=== PATIENT | male | born 1980 | race Caucasian/White ===

== ENCOUNTER 2020-01-05 22:43 | Emergency (ER) | payer BC, SELFPAY ==
--- NOTE | ~2020-01-05 | XR_ITS ---
EXAMINATION: XR abdomen/kub 1V DATE: 01/06/2020 02:48 INDICATION: Left flank pain. TECHNIQUE: A supine view of the abdomen on 2 radiographs was obtained. COMPARISON: CT abdomen and pelvis 01/06/2020 FINDINGS: There are no dilated loops of bowel. There is a phlebolith in left pelvis. The 2 mm stone a t left ureterovesicular junction is not visible. IMPRESSION: 1. The 2 mm stone at left ureterovesicular junction is not visible. Reviewed, dictated and finalized at location A.
--- NOTE | ~2020-01-05 | CT_ITS ---
EXAMINATION: CT abdomen pelvis wo con DATE: 01/06/2020 02:51 INDICATION: Left flank pain. Hematuria. TECHNIQUE: Computed tomography (CT) of the abdomen and pelvis was performed without intravenous contr ast. Automated exposure control and iterative reconstruction technique were employed. The dose-length product was 1426.80 mGy-cm. COMPARISON: CT abdomen and pelvis 05/11/2019 FINDINGS: The visualized portions of the lung bases demonstrate mild atelectasis on the left. No pleu ral effusion. The heart size is normal. No pericardial effusion. The liver, gallbladder, spleen, panc reas, adrenal glands, and right kidney are normal. There is mild left hydronephrosis and hydroureter. There is a 2 mm stone at left ureterovesicular junction. There are no dilated loops of bowel. The ap pendix is normal. There are no pathologically enlarged lymph nodes. There is no free intraperitoneal fluid. There is mild thoracic spondylosis. IMPRESSION: 1. 2 mm stone at left ureterovesicular junction with mild left hydronephrosis and hydroureter. Reviewed, dictated and finalized at location A. IMPRESSION: 1. 2 mm stone at left ureterovesicular junction with mild left hydronephrosis a nd hydroureter.
[2020-01-05 22:51] VITALS: BP 156/86; PULSE 67; RESP 20; TEMP 36.2; O2SAT 98
[2020-01-05 23:50] LABS: Basophils Percent Auto 0.4 % (0.2-1.2); Eosinophils Absolute Auto 0.2 K/mm3 (0-0.3); Eosinophils Percent Auto 2.4 % (0-4.4); Hematocrit 45.2 % (42.0-52.0); Hemoglobin 15.1 g/dL (14.0-18.0); Immature Granulocyte Absolute 0.03 K/mm3 (0.00-0.031); Immature Granulocyte Percent A 0.3 % (0-0.5); Lymphocytes Absolute Auto 2.89 K/mm3 (0.9-3.2); Lymphocytes Percent Auto 30.5 % (18.3-44.2); Mean Corpuscular HGB Conc 33.4 g/dl (32-36); Mean Corpuscular Hemoglobin 30.2 pg (26-34); Mean Corpuscular Volume 90.4 fl (80-100); Mean Platelet Volume 10.9 fl (7.4-10.4); Monocytes Absolute Auto 0.6 K/mm3 (0.1-0.6); Monocytes Percent Auto 6.2 % (2.6-8.5); Neutrophils Absolute Auto 5.7 K/mm3 (1.3-6.7); Neutrophils Percent Auto 60.2 % (45.5-73.1); Platelet Count Result 217 k/mm3 (150-375); Red Cell Distribution Width 12.3 % (11.5-14.5); White Blood Count 9.5 K/mm3 (4.5-10.0)
[2020-01-05 23:56] LABS: Add Urine Microscopic? YES; Appearance Urine Clear (Clear); Bilirubin Urine Negative (Negative); Blood Urine Negative (Negative); Color Urine Yellow (Yellow); Glucose Urine UA Negative (Negative); Ketones Urine Negative (Negative); Leukocyte Esterase Ur Negative LEU/UL (Negative); Mucus Urine Rare /lpf; Nitrate Urine Negative (Negative); Protein Urine Negative (Negative); Specific Grav Ur 1.025 (1.001-1.035); Urobilinogen Urine Negative mg/dL (<2.0)
[2020-01-06] VITALS: BP 164/74; PULSE 69; RESP 14; TEMP 36.4; O2SAT 100
[2020-01-06] LABS: Blood Urea Nitrogen 18 mg/dL (9-20); Calcium 9.8 mg/dL (8.4-10.2); Carbon Dioxide 27 mmol/L (22-30); Chloride 105 mmol/L (98-107); Estimated CRCL calculation 117 ml/min; Estimated Glomerular Filt Rate > 60; Glucose 109 mg/dL (75-110); Potassium 3.9 mmol/L (3.4-5.0); Sodium 140 mmol/L (137-145)
[2020-01-06 01:57] VITALS: BP 155/85; PULSE 77; RESP 18; O2SAT 94
--- NOTE | 2020-01-06 02:20 | ED.ABDPAIN ---
HPI - Abdominal Pain General Chief Complaint: Abdominal Pain Stated Complaint: left sided flank pain Time Seen by Provider: 01/06/20 02:13 Source: patient Mode of arrival: ambulatory Limitations: no limitations History of Present Illness HPI narrative: This patient is a 39 yo male who presents with c/o left flank pain since Sunday. PAtient states he has intermittent left flank pain that became more severe tonight. He states his pain radiates around to his umbilicus. He is not taken anything for pain but his pain has improved in ED . He rates pain 3/10 currently. HE denies fever or chills, but he states he was sweating when his pain was severe earlier. He has similar pain last year when he last had a kidney stone. Related Data Allergies Allergy/AdvReac Type Severity Reaction Status Date / Time No Known Allergies Allergy Mild Verified 01/05/20 22:55 Review of Systems Review of Systems: All systems reviewed & are unremarkable except as noted in HPI and below Constitutional: Constitutional: Denies chills and Denies fever(s) Gastrointestinal: Gastrointestinal: Reports abdominal pain Genitourinary: Genitourinary: Denies hematuria, Denies oliguria and Denies dysuria Musculoskeletal: Musculoskeletal: Reports back pain PMFSH Past Medical History Medical History (Updated 01/06/20 @ 04:58 by Anjali Sorensen MD) Kidney stones Social History Social History Gender identity (if verbalized by the patient): Male Exam Narrative: Exam Narrative: GENERAL: Well-appearing, well-nourished, and in no acute distress. HEAD: Normocephalic, atraumatic EYES: PERRLA and EOMI, conjunctiva clear without discharge THROAT:Mucous membranes moist, Oropharynx normal without erythema, exudate, peritonsillar swelling or fluctuance NECK: Supple, without lymphadenopathy or mass RESPIRATORY: No respiratory distress, Airway patent, Respirations non-labored, Clear to auscultation without rales, rhonchi or wheeze HEART: Regular rate and rhythm. No murmur heard. Normal peripheral pulses. ABDOMEN: Soft, nontender, nondistended, normal active bowel sounds. No masses. No rebound or guarding, No organomegaly. EXTREMITIES: No edema, normal strength with full range of motion. SKIN: Warm, dry, normal color without rash NEURO: Alert and oriented x3. CN 2-12 grossly intact. No focal deficits. PSYCH: Normal mood and affect. Course Reevaluation(s) Reevaluation #1: Patient states he feels much better. He was given toradol and flomax. He states he has prescription of flomax already prescribed to him. Date: 01/06/20 Time: 04:56 Vital Signs Vital signs: Vital Signs Temperature 97.1 F L 01/05/20 22:51 Pulse Rate 67 01/05/20 22:51 Respiratory Rate 20 01/05/20 22:51 Blood Pressure 156/86 H 01/05/20 22:51 Pulse Oximetry 98 01/05/20 22:51 Temperature 97.7 F 01/06/20 05:19 Pulse Rate 81 01/06/20 05:19 Respiratory Rate 16 01/06/20 05:19 Blood Pressure 160/81 H 01/06/20 05:19 Pulse Oximetry 99 01/06/20 05:19 MDM - Abdominal Pain Lab Data Attestation: I reviewed the patient's lab results. Result diagrams: 01/05/20 23:42 01/05/20 23:42 Labs: Lab Results 01/05/20 01/05/20 01/05/20 Range/Units 23:42 23:42 23:42 WBC 9.5 (4.5-10.0) K/mm3 RBC 5.00 (4.6-6.20) M/mm3 Hgb 15.1 (14.0-18.0) g/dL Hct 45.2 (42.0-52.0) % MCV 90.4 (80-100) fl MCH 30.2 (26-34) pg MCHC 33.4 (32-36) g/dl RDW 12.3 (11.5-14.5) % Plt Count 217 (150-375) k/mm3 MPV 10.9 H (7.4-10.4) fl Immature Gran % (Auto) 0.3 (0-0.5) % Neut % (Auto) 60.2 (45.5-73.1) % Lymph % (Auto) 30.5 (18.3-44.2) % [place] % (Auto) 6.2 (2.6-8.5) % Eos % (Auto) 2.4 (0-4.4) % Baso % (Auto) 0.4 (0.2-1.2) % Lymph # (Auto) 2.89 (0.9-3.2) K/mm3 [place] # (Auto) 0.6 (0.1-0.6) K/mm3 Eos # (Auto) 0.2 (0-0.3) K/mm3 Baso # (Auto) 0.0 (0.0-0.1) K/mm3
[2020-01-06 03:31] VITALS: BP 151/87; PULSE 72; RESP 18; O2SAT 97
[2020-01-06] MEDS: KETOROLAC 30 MG/ML VIAL (*BKC) IV PUSH (03:51)
[2020-01-06] MEDS: SODIUM CHLORIDE 0.9% IV 1,000 ML 999 ML IV CONT (03:56)
[2020-01-06] MEDS: TAMSULOSIN HCL 0.4 MG CAPSULE PO (03:56)
[2020-01-06 04:21] VITALS: TEMP 36.4
[2020-01-06 05:19] VITALS: BP 160/81; PULSE 81; RESP 16; TEMP 36.5; O2SAT 99
== END 2020-01-06 05:33 | disposition home or self-care (01) ==
PROVIDERS: Emergency Provider General Practice; PCP Internal Medicine
DX: N13.2 Hydronephrosis with renal and ureteral calculous obstruction (principal); Z87.442 Personal history of urinary calculi; K76.0 Fatty (change of) liver, not elsewhere classified
CPT/HCPCS: 36415; 74018; 74176; 80048; 81001; 85025; 96361; 96374; 99284; A9270; J1885; J7030

== ENCOUNTER 2021-09-21 10:30 | Outpatient (CLI) | payer BC, SELFPAY ==
--- NOTE | ~2021-09-21 | US_ITS ---
EXAMINATION: US carotid duplex BI DATE: 09/21/2021 11:45 INDICATION: Left carotid bruit TECHNIQUE: Grayscale, color Doppler, and pulsed Doppler images of the cervical carotid arteries were obtained. The degree of vessel stenosis is placed in one of the following categories: normal, <50%, 5 0-69%, >=70% but less than near-occlusion, near-occlusion, or total occlusion. Note that percent sten osis relative to normal distal artery lumen diameter is indirectly measured from velocity measurement s as described by Gary, et al. Radiology 2003; 229:340-346. Notes: Normal: Peak systolic velocity <125 centimeters/sec and no plaque <50%. Peak systolic velocity <125 ( EDV <40; ICA/CCA PSV ratio <2.0; used these factors only a tandem lesions or low cardiac output or co ntralateral disease) 50-69 %: PSV 125-230 (EDV 40-100; ratio 2-4) >= 70% but less than near occlusion: PSV greater than 230 (EDV > 100; ratio> 4.0) Near Occlusion: PSV that is variable; markedly narrowed lumen Occlusion: Absent flow on color/spectral Doppler and no lumen on kellogg scale. COMPARISON: None. FINDINGS: RIGHT: The right common carotid artery (CCA) peak systolic velocity (PSV) is 136 cm/s. The right internal ca rotid artery (ICA) PSV is 83 cm/s. The right ICA end-diastolic velocity (EDV) is 31 cm/s. The right I CA/CCA PSV ratio is 0.6. The external carotid artery (ECA) PSV is 141 cm/s. There is antegrade flow i n the right vertebral artery. LEFT: The left CCA PSV is 168 cm/s. The left ICA PSV is 80 cm/s. The left ICA EDV is 17 cm/s. The left ICA/ CCA PSV ratio is 0.47. The ECA PSV is 89 cm/s. There is antegrade flow in the left vertebral artery. IMPRESSION: 1. Less than 50% stenosis in the right internal carotid artery by sonographic criteria. 2. Less than 50% stenosis in the left internal carotid artery by sonographic criteria. Reviewed, dictated and finalized at location B. R [employer] IMPRESSION: 1. Less than 50% stenosis in the right internal carotid artery by sonographic girish meraz. 2. Less than 50% stenosis in the left internal carotid artery by sonographic emily russell.
== END 2021-09-21 10:31 | disposition home or self-care (01) ==
PROVIDERS: PCP Internal Medicine; Visit Provider Internal Medicine
DX: R09.89 Other specified symptoms and signs involving the circulatory and respiratory systems (principal); I65.23 Occlusion and stenosis of bilateral carotid arteries
CPT/HCPCS: 93880

== ENCOUNTER 2024-04-07 11:09 | Emergency (ER) | payer BC, SELFPAY ==
[2024-04-07 11:20] VITALS: BP 127/80; PULSE 66; RESP 14; TEMP 36.8; O2SAT 100
--- NOTE | 2024-04-07 12:46 | ED.SKABFB ---
HPI - Skin/Abscess/Foreign Bdy General Chief complaint: Skin/Abscess/Foreign Body Stated complaint: abscess Time Seen by Provider: 04/07/24 12:02 History of Present Illness HPI narrative: This is a 43-year-old male with past medical history significant for prediabetes who presents to the ED with a abscess in his perineal region. Patient states that started about 1 week prior. Has been increasing in size and is now painful. Denies any systemic features such as fever, chills, rigors, shortness of breath, headache, vision changes. Has not been taking anything at home. Denies any drainage or injuries. No scratches, bug bites or trauma associated with this. Related Data Home Medications Medication Instructions Recorded Confirmed vilazodone 40 mg tablet 40 mg PO DAILY 08/16/23 brexpiprazole 0.25 mg tablet 0.25 mg PO DAILY 01/03/24 (Rexulti) bupropion HCl 200 mg tablet,12 hr 200 mg PO DAILY 01/03/24 sustained-release Allergies Allergy/AdvReac Type Severity Reaction Status Date / Time No Known Allergies Allergy Mild Verified 04/07/24 14:01 Review of Systems Review of Systems: As reviewed above in the HPI PMFSH Past Medical History Medical History Anxiety Depression Diabetes Fatigue High cholesterol Kidney stones Low testosterone Prediabetes Screening for prostate cancer Sleep apnea Wears glasses Weight gain Surgical History Surgical History H/O bariatric surgery Family History Family History Father Brain cancer Grandparent Malignant neoplasm of prostate Social History Social History Smoking status: Never smoker Alcohol intake: current Alcohol use details: Occasionally Substance use: never Do You Feel Safe in your Home?: Yes Lack of Transportation: No Lack of Food: Never True Current Housing: I Have Housing Concerned About Future Housing: No Difficulty Paying Gas/Electric Bills: No Difficulty Paying for Meds: No Currently Unemployed: No Education: Don't Know Difficulty w/ Childcare or Family Care: No Living arrangements: with family Occupation/Education: occupation Additional occupation/education comments: self employed Gender identity (if verbalized by the patient): Male Spiritual care concerns: No Agree to blood products: Yes Exam Narrative: GENERAL: [Well-appearing, well-nourished, and in no acute distress.] HEAD: [Normocephalic, atraumatic.] EYES: [PERRLA and EOMI.] ENT: Nares clear, no rhinorrhea or epistaxis. Mucous membranes moist. NECK: Supple. CHEST: [Clear to auscultation. No respiratory distress.] HEART: [Regular rate and rhythm]. No murmur heard. [Normal peripheral pulses.] ABDOMEN: [Soft, nondistended], [nontender], [No rigidity or guarding] EXTREMITIES: Normal range of motion. [No edema.] SKIN: The intragluteal cleft on the right side has a very large 5 x 5 area of induration, warmth and fluctuance consistent with perineal abscess. No active drainage, tenderness to the touch. NEURO: [No focal deficits]. Alert and oriented [x3.] PSYCH: [Normal mood and affect.] Course Vital Signs Vital signs: Vital Signs Temperature 36.8 C 04/07/24 11:20 Pulse Rate 66 04/07/24 11:20 Respiratory Rate 14 04/07/24 11:20 Blood Pressure 127/80 04/07/24 11:20 Pulse Oximetry 100 04/07/24 11:20 Temperature 36.8 C 04/07/24 11:20 Pulse Rate 66 04/07/24 11:20 Respiratory Rate 14 04/07/24 11:20 Blood Pressure 127/80 04/07/24 11:20 Pulse Oximetry 100 04/07/24 11:20 Procedures Abscess I/D renata-rectal: Date of Incision: 04/07/24 Time of Incision: 14:07 Side (if applicable): right Sedation/analgesia: other (Gause 10 mg, Ativan
[2024-04-07] MEDS: HYDROcodone/acetaminophen (*CRX) 10-325 MG TABLET 1 TAB PO (12:47)
[2024-04-07] MEDS: LORazepam (*CRX) 1 MG TABLET PO (12:48)
[2024-04-07] MEDS: SULFAMETHOXAZOLE/TRIMETHOPRIM 800/160 MG DS TABLET 1 TAB PO (14:23)
== END 2024-04-07 14:28 | disposition home or self-care (01) ==
LOC: ANHED 13:37
PROVIDERS: Emergency Provider Student in an Organized Health Care Education/Training Program; PCP Family Medicine
DX: L02.215 Cutaneous abscess of perineum (principal); E11.9 Type 2 diabetes mellitus without complications
CPT/HCPCS: 46040; 99283; A9270

== ENCOUNTER 2025-05-12 00:40 | Day surgery (SDC) | payer BC, SELFPAY ==
--- OUTSIDE RECORDS SUMMARY | 2025-04-03 04:00 | XMS_ITS ---
Author Organization [facility] [employer] [facility] Address [address] [address] Care Team Providers Care Log Loader Name Role Phone Camelia Nazario Primary Care Provider Unav ailable Madai Floyd Unavailable [phone] Terri Grier Unavailable [phone] REASON FOR VISIT 1 week follow up Social History Sex Assigned At : Social History Observation Description Sex Assigned At Male Encounters Encounter Location Date Provider Diagnosis [facility] [employer] [place] [address] [address] 04/03/2025 Terri Grier Plan Of Treatment Next Appt Details Provider Name:Terri Grier, 05/15/2025 10:00:00 AM, [facility] [facility], [address], [address], Provider Name:Terri Grier, 06/05/2025 09:00:00 AM, [facility] [address], [address], Provider Name:Terri Grier, 06/12/2025 10:00:00 AM, [address] [place] [address], [address], Progress Notes * DARYA TILLEYDOB:1980 (44 yo M)Acc No.[id number]:04/03/2025 Patient: DARYA CARRENO Provider: Gabriel GRIER LCSW :1980 A ge:44 Y S ex:Male Date:04/03/2025 Address:[address] [place], [place] [id number] Pcp:Camelia DARNELL Data: * Chief Complaints: * 1 week follow up * Electronic signature of Terri Grier LCSW on 05/12/2025 at 12:43 AM CDT Sign off status: Pending Signatures: No Ad Hoc Signature Added * Provider: Gabriel GRIER LCSW Date: 0 04/03/2025 Generated for Rocío golden/Anish/Rupa on: 0 05/12/2025 12:43 AM CDT
--- OUTSIDE RECORDS SUMMARY | 2025-04-24 05:00 | XMS_ITS ---
Author Organization [facility] [employer] [facility] Address [address] [address] Care Team Providers Care Skoog Machine Operator Name Role Phone Camelia Nazario Primary Care Provider Unav ailMadai Faria Unavailable [phone] Terri Grier Unavailable [phone] REASON FOR VISIT Therapy Visit Social History Sex Assigned At : Social History Observation Description Sex Assigned At Male Encounters Encounter Location Date Provider Diagnosis [facility] [employer] [place] [id number] [address] 04/24/2025 Terri Grier Plan Of Treatment Next Appt Details Provider Name:Terri Grier, 05/15/2025 10:00:00 AM, [address] [place] [address], [address], Provider Name:Terri Grier, 06/05/2025 09:00:00 AM, [address], [address], Provider Name:Terri Grier, 06/12/2025 10:00:00 AM, [address], [address], Progress Notes * DARYA TILLEYDOB:1980 (44 yo M)Acc No.[id number]:04/24/2025 Patient: DARYA CARRENO Provider: Gabriel GRIER LCSW :1980 A ge:44 Y S ex:Male Date:04/24/2025 Address:[address] [place], [place] [id number] Pcp:Camelia DARNELL Data: * Chief Complaints: * T herapy Visit Billing Information: * Procedure Codes: * Electronic signature of Terri Grier LCSW on 05/12/2025 at 12:43 AM CDT Sign off status: Pending Signatures: No Ad Hoc Signature Added * Provider: Gabriel GRIER LCSW Date: 0 04/24/2025 Generated for Rocío golden/Anish/Rupa on: 0 05/12/2025 12:43 AM CDT
[2025-04-24 09:21] VITALS: BMI 26.0
--- OUTSIDE RECORDS SUMMARY | 2025-05-08 05:00 | XMS_ITS ---
Author Organization [facility] [employer] [facility] Address [address] [address] Care Team Providers Care Help Desk Assistant Name Role Phone Camelia Nazario Primary Care Provider Unav ailMadai Faria Unavailable [phone] Terri Grier Unavailable [phone] REASON FOR VISIT Therapy Visit Social History Sex Assigned At : Social History Observation Description Sex Assigned At Male Encounters Encounter Location Date Provider Diagnosis [facility] [employer] [place] [address] [address] 05/08/2025 Terri Grier Plan Of Treatment Next Appt Details Provider Name:Terri Grier, 05/15/2025 10:00:00 AM, [facility] [place] [address], [address], Provider Name:Terri Grier, 06/05/2025 09:00:00 AM, [address], [address], Provider Name:Terri Grier, 06/12/2025 10:00:00 AM, [address], [address], Progress Notes * DARYA TILLEYDOB:1980 (44 yo M)Acc No.[id number]:05/08/2025 Patient: DARYA CARRENO Provider: Gabriel GRIER LCSW :1980 A ge:44 Y S ex:Male Date:05/08/2025 Address:[address] [place], [place] [phone] Pcp:Camelia DARNELL Data: * Chief Complaints: * T herapy Visit * Electronic signature of Terri Grier LCSW on 05/12/2025 at 12:43 AM CDT Sign off status: Pending Signatures: No Ad Hoc Signature Added * Provider: Gabriel GRIER LCSW Date: 0 05/08/2025 Generated for Rocío golden/Anish/Rupa on: 0 05/12/2025 12:43 AM CDT
--- OUTSIDE RECORDS SUMMARY | 2025-05-12 00:43 | XMS_ITS | Patient Health Record ---
Author Organization [facility] [employer] [facility] Address [address] [place] [address] Care Team Providers Care Senior Administrative Services Officer Name Role Phone Camelia Nazario Primary Care Provider Sasha Floyd Madai Unavailable [phone] Jeff Terri Unavailable [phone] Joaquim Page Unavailable [phone] Allergies No Known Allergies Reason For Referral No Information Medications Medication SIG (Take, Route, Frequency, Duration) Notes Start Date End Date Status Spravato (84 MG Dose) 28 MG/DEVICE Solution Therapy Pack 3 sprays in each nostril Nasally twice a week Active Vilazodone HCl 40 MG Tablet 1 tablet with food Oral Once a day; Duration: 90 days Active Testosterone Cypionate 200 MG/ML Solution Intramuscular 12/24/2023 Not-Taki ng buPROPion HCl 100 MG Tablet 2 tablets Oral in the morning; Duration: 90 days 1 tablet at bedtime Active Syringe 3 mL SYRINGE, EMPTY DISPOSABLE MISCELLANEOUS 12/24/2023 Not-Taking Immunizations Vaccine Route Administration Date Status Comme nts Pfizer Biontech Covid-19 Vac cine 2nd dose Unknown 11/01/2020 Administered Pfizer Biontech Covid-19 Vac cine 2nd dose Unknown 11/29/2020 Administered Pfizer Biontech Covid-19 Vac cine 2nd dose Unknown 07/18/2021 Administered Social History Tobacco Use: Social History Observation Description Date Details (start date - stop date) Never Smoker NA - NA Sex Assigned At : Social History Observation Description Sex Assigned At Male Social History Miscellaneous: Social Info Question Answer Notes Advance Care Planning Advance Directive FULL CODE Safety issues: Do you feel safe at home? Yes Household: Social Info Question Answer Notes Household Marital status: Drug/Alcohol: Social Info Question Answer Notes Drugs Have you used drugs other than those for medical reasons in the past 12 months? No Benzodiazapines? No Tobacco Use: Social Info Question Answer Notes Tobacco Control (Standard) Tobacco use: Nonsmoker Additional Details Category Social Info Options Details Miscellaneous: Occupation: works full-ti me Migrated Social History Migrated Social History Alcohol Intake: Occasional 03/23/2022,Tobacco Years: Never smoker 03/23/2022 Problems Problem Type SNOMED Code ICD Code Onset Dates Problem Status W/U Status Risk Notes Problem Moderate recurrent major depression (04233803) Major depressive disorder, recurrent, moderate (F33.1) Active confirmed Problem Severe recurrent major depression without psychotic features (96163025) Major depressive disorder, recurrent severe without psychotic features (F33.2) Active confirmed Problem Generalized anxiety disorder (40751562) Generalized anxiety disorder (F41.1) Active confirmed Vital Signs Heart Rate 82 /min 03/26/2025 Oximetry 99 % 03/26/2025 Height-cm 175.26 cm 03/26/2025 Blood pressure diastolic 74 mm Hg 03/26/2025 Weight-kg 81.65 kg 01/22/2025 Height 69.00 in 03/26/2025 Blood pressure systolic 114 mm Hg 03/26/2025 Weight 180 lbs 01/22/2025 BMI 26.58 kg/m2 01/22/2025 Encounters Encounter Location Date Provider Diagnosis [facility] [employer] [facility] [address] [address] 05/30/2024 Terri Hemann Major depressive disorder, recurrent, moderate F33.1 and Generalized anxiety disorder F41.1 [facility] [employer] [facility] [address] [address] 07/25/2024 Terri Hemann Major depressive disorder, recurrent, moderate F33.1 and Generalized anxiety disorder F41.1 [facility] [employer] [place] [id number] [address] 08/01/2024 Terri Hemann Major depressive disorder, recurrent, moderate F33.1 and Generalized anxiety disorder F41.1 [facility] [employer] [facility] [address] [address] 08/08/2024 Terri Hemann Major depressive disorder, recurrent, moderate F33.1 and Generalized anxiety disorder F41.1 [facility], [facility] [address] [place] [address] 08/15/2024 Terri Hemann Major depressive disorder, recurrent, moderate F33.1 and Generalized anxiety disorder F41.1 [facility], [facility] [address] [place] [address] 08/22/2024 Terri Hemann Major depressive disorder, recurrent, moderate F33.1 and Generalized anxiety disorder F41.1 [facility], [facility] [address] [place] [address] 09/05/2024 Terri Hemann Major depressive disorder, recurrent, moderate F33.1 and Generalized anxiety disorder F41.1 [facility], [facility] [address] [place] [address] 09/26/2024 Terri Hemann Major depressive disorder, recurrent, moderate F33.1 and Generalized anxiety disorder F41.1 [facility], [facility] [address] [place] [address] 09/26/2024 Madai Kurilla Major depressive disorder, recurrent severe without psychotic features F33.2 and Generalized anxiety disorder F41.1 [facility], [facility] [address] [place] [address] 12/12/2024 Terri Hemann Major depressive disorder, recurrent, moderate F33.1 and Generalized anxiety disorder F41.1 [facility], [facility] [address] [place] [address] 12/12/2024 Madai Kurilla Encounter for screen ing for depression Z13.31 ; Major depressive disorder, recurrent severe without psychotic features F33.2 and Generalized anxiety disorder F41.1 [facility], [facility] [address] [place] [address] 12/19/2024 Terri Hemann Encounter for screen ing for depression Z13.31 ; Generalized anxiety disorder F41.1 and Major depressive disorder, recurrent, moderate F33.1 [facility], [facility] [address] [place] [address] 12/26/2024 Terri Hemann Encounter for screen ing for depression Z13.31 ; Generalized anxiety disorder F41.1 and Major depressive disorder, recurrent, moderate F33.1 [facility], [facility] [address] [place] [address] 01/02/2025 Terri Hemann Encounter for screen ing for depression Z13.31 ; Major depressive disorder, recurrent, moderate F33.1 and Generalized anxiety disorder F41.1 [facility], [facility] [address] [place] [address] 01/16/2025 Madai Floyd Major depressive disorder, recurrent severe without psychotic features F33.2 ; Generalized anxiety disorder F41.1 ; Encounter for screening for depression Z13.31 and Encounter for screening for cardiovascular disorders Z13.6 [facility], [facility] [address] [place] [address] 01/22/2025 Terri Hemann Major depressive disorder, recurrent, moderate F33.1 and Generalized anxiety disorder F41.1 [facility], [facility] [address] [place] [address] 01/22/2025 Joaquim Kaylee Encounter for screen ing for cardiovascular disorders Z13.6 ; Generalized anxiety disorder F41.1 ; Encounter for screening for depression Z13.31 and Major depressive disorder, recurrent severe without psychotic features F33.2 [facility], [facility] [address] [place] [address] 01/30/2025 Terri Hemann Encounter for screen ing for depression Z13.31 ; Major depressive disorder, recurrent, moderate F33.1 and Generalized anxiety disorder F41.1 [facility], [facility] [address] [place] [address] 02/06/2025 Terri Hemann Major depressive disorder, recurrent, moderate F33.1 and Generalized anxiety disorder F41.1 [facility], [facility] [address] [place] [address] 03/06/2025 Terri Hemann Major depressive disorder, recurrent, moderate F33.1 and Generalized anxiety disorder F41.1 [facility], [facility] [address] [place] [address] 03/17/2025 Joaquim Kaylee Major depressive disorder, recurrent severe without psychotic features F33.2 [facility], [facility] [address] [place] [address] 03/19/2025 Joaquim Kaylee Major depressive disorder, recurrent severe without psychotic features F33.2 [facility], [facility] [address] [place] [address] 03/20/2025 Terri Hemann Major depressive disorder, recurrent, moderate F33.1 and Generalized anxiety disorder F41.1 [facility], [facility] [address] [place] [address] 03/23/2025 Joaquim Kaylee Major depressive disorder, recurrent severe without psychotic features F33.2 [facility], [facility] [address] [place] [address] 03/26/2025 Joaquim Kaylee Major depressive disorder, recurrent severe without psychotic features F33.2 [facility], [facility] [address] [place] [address] 03/27/2025 Terri Hemann Major depressive disorder, recurrent, moderate F33.1 and Generalized anxiety disorder F41.1 [facility], [facility] [address] [place] [address] 05/01/2025 Terri Hemann Major depressive disorder, recurrent, moderate F33.1 and Generalized anxiety disorder F41.1 [facility], [facility] [address] [place] [address] 03/27/2025 Madai Floyd [facility], [facility] [address] [place] [address] 03/30/2025 Madai Floyd [facility], [facility] [address] [place] [address] 05/01/2025 Madai Floyd [facility], [facility] [address] [place] [address] 12/26/2024 Madaikarl Floyd [facility], [facility] [address] [place] [address] 04/28/2025 Madaikarl Floyd [facility], [facility] [address] [place] [address] 03/30/2025 Madaikarl Floyd [facility], [facility] [address] [place] [address] 09/05/2024 Madaikarl Hernandezilla Major depressive disorder, recurrent severe without psychotic features F33.2 [facility], [facility] [address] [place] [address] 12/12/2024 Madai Floyd [facility], [facility] [address] [place] [address] 01/06/2025 [facility] [address] [place] [address] 01/12/2025 [facility] Mariel [facility] [address] [place] [address] 04/24/2025 Madai Floyd Assessments Encounter Date Diagnosis (ICD Code) Assessment Notes Treatment Notes Treatment Clinical Notes Section Notes 05/30/2024 Major depressive disorder, recurrent, moderate (ICD-10 - F33.1) 05/30/2024 Generalized anxiety disorder (ICD-10 - F41.1) 07/25/2024 Major depressive disorder, recurrent, moderate (ICD-10 - F33.1) 07/25/2024 Generalized anxiety disorder (ICD-10 - F41.1) 08/01/2024 Major depressive disorder, recurrent, moderate (ICD-10 - F33.1) 08/01/2024 Generalized anxiety disorder (ICD-10 - F41.1) 08/08/2024 Major depressive disorder, recurrent, moderate (ICD-10 - F33.1) 08/08/2024 Generalized anxiety disorder (ICD-10 - F41.1) 08/15/2024 Major depressive disorder, recurrent, moderate (ICD-10 - F33.1) 08/15/2024 Generalized anxiety disorder (ICD-10 - F41.1) 08/22/2024 Major depressive disorder, recurrent, moderate (ICD-10 - F33.1) 08/22/2024 Generalized anxiety disorder (ICD-10 - F41.1) 09/05/2024 Major depressive disorder, recurrent, moderate (ICD-10 - F33.1) 09/05/2024 Generalized anxiety disorder (ICD-10 - F41.1) 09/05/2024 Major depressive disorder, recurrent severe without psychotic features (ICD-10 - F33.2) 09/26/2024 Major depressive disorder, recurrent, moderate (ICD-10 - F33.1) 09/26/2024 Generalized anxiety disorder (ICD-10 - F41.1) 09/26/2024 Major depressive disorder, recurrent severe without psychotic features (ICD-10 - F33.2) Stop Rexulti due to brain fog. Discussed monitoring for increase in anxiety and depression and restart if needed. Continue Wellbutrin 100mg BID Continue vilazodone 40mg daily Patient educated on all medications including potential benefits, side effects, risks. Educated on proper dosing schedule and importance of compliance. Cont counseling with Terri Encouraged limiting alcohol use, could be contributing to brain fog, depression, memory. 12/12/2024 Major depressive disorder, recurrent, moderate (ICD-10 - F33.1) 12/12/2024 Generalized anxiety disorder (ICD-10 - F41.1) 12/12/2024 Encounter for screening for depression (ICD-10 - Z13.31) 12/19/2024 Generalized anxiety disorder (ICD-10 - F41.1) 12/19/2024 Encounter for screening for depression (ICD-10 - Z13.31) 12/26/2024 Generalized anxiety disorder (ICD-10 - F41.1) 12/26/2024 Encounter for screening for depression (ICD-10 - Z13.31) 01/02/2025 Major depressive disorder, recurrent, moderate (ICD-10 - F33.1) 01/02/2025 Encounter for screening for depression (ICD-10 - Z13.31) 01/16/2025 Major depressive disorder, recurrent severe without psychotic features (ICD-10 - F33.2) 01/16/2025 Generalized anxiety disorder (ICD-10 - F41.1) 01/22/2025 Major depressive disorder, recurrent, moderate (ICD-10 - F33.1) 01/22/2025 Generalized anxiety disorder (ICD-10 - F41.1) Patient reports significant anxiety alongside depression. No history of manic episodes or paranoia. - Consider esketamine treatment for anxiety management. 01/22/2025 Encounter for screening for cardiovascular disorders (ICD-10 - Z13.6) 01/30/2025 Major depressive disorder, recurrent, moderate (ICD-10 - F33.1) 01/30/2025 Encounter for screening for depression (ICD-10 - Z13.31) 02/06/2025 Major depressive disorder, recurrent, moderate (ICD-10 - F33.1) 03/17/2025 Major depressive disorder, recurrent severe without psychotic features (ICD-10 - F33.2) 03/19/2025 Major depressive disorder, recurrent severe without psychotic features (ICD-10 - F33.2) 03/20/2025 Major depressive disorder, recurrent, moderate (ICD-10 - F33.1) 03/23/2025 Major depressive disorder, recurrent severe without psychotic features (ICD-10 - F33.2) 03/26/2025 Major depressive disorder, recurrent severe without psychotic features (ICD-10 - F33.2) 03/27/2025 Major depressive disorder, recurrent, moderate (ICD-10 - F33.1) 03/06/2025 Major depressive disorder, recurrent, moderate (ICD-10 - F33.1) 05/01/2025 Major depressive disorder, recurrent, moderate (ICD-10 - F33.1) 05/01/2025 Generalized anxiety disorder (ICD-10 - F41.1) 03/06/2025 Generalized anxiety disorder (ICD-10 - F41.1) 01/16/2025 Encounter for screening for depression (ICD-10 - Z13.31) 03/27/2025 Generalized anxiety disorder (ICD-10 - F41.1) 03/20/2025 Generalized anxiety disorder (ICD-10 - F41.1) 02/06/2025 Generalized anxiety disorder (ICD-10 - F41.1) 01/30/2025 Generalized anxiety disorder (ICD-10 - F41.1) 01/22/2025 Encounter for screening for depression (ICD-10 - Z13.31) 01/22/2025 Generalized anxiety disorder (ICD-10 - F41.1) 01/02/2025 Generalized anxiety disorder (ICD-10 - F41.1) 12/26/2024 Major depressive disorder, recurrent, moderate (ICD-10 - F33.1) 12/19/2024 Major depressive disorder, recurrent, moderate (ICD-10 - F33.1) 12/12/2024 Major depressive disorder, recurrent severe without psychotic features (ICD-10 - F33.2) 09/26/2024 Generalized anxiety disorder (ICD-10 - F41.1) 12/12/2024 Generalized anxiety disorder (ICD-10 - F41.1) 01/16/2025 Encounter for screening for cardiovascular disorders (ICD-10 - Z13.6) 01/22/2025 Major depressive disorder, recurrent severe without psychotic features (ICD-10 - F33.2) Patient has been experiencing severe depression for two years. Previous TMS treatment initially helped but lost effectiveness. Considering esketamine treatment with potential side effects. - Start Spravato twice a week for four weeks, then reduce frequency to once a week. - Follow up with Madai for medication management. - Avoid heavy machinery on treatment days due to sedation risk. spravato 56 mg on day 1, than spravato 84 mg twice a week for total of 8 treatment. Rtc with me in one month continue to see Madai for regular visit and care 12/12/2024 Other Increase Wellbutrin to 300mg total daily for depression. Continue vilazodone 40mg daily for depression and anxiety Patient educated on all medications including potential benefits, side effects, risks. Educated on proper dosing schedule and importance of compliance. Continue counseling with Terri Patient is a good candidate for esketamine treatments. Has not shown improvement in depressive symptoms with past 6 medications- all trialed at appropriate dose for adequate amount of time. Patient also has completed TMS treatments 07/26/2023 to 09/26/2023 without significant improvement. 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 -Assessment and treatment plan reviewed with patient. -Compliance with treatment plan importance discussed. -Discussed the risks/benefits of this medication -Discussed medication side effects. -Contact office if symptoms worsen. -Discussed that it can take up to 6-8 weeks to see full therapeutic effects of psychotropic medications. -Crisis prevention hotline 988. 01/16/2025 Other Esketamine treatments are approved under medical benefits, schedule with Dr Page for treatment ordering and initiate treatment, approved through 03/28/2025. Refills sent in today. Patient educated on all medications including potential benefits, side effects, risks. Educated on proper dosing schedule and importance of compliance. Cont counseling with Terri -Assessment and treatment plan reviewed with patient. -Compliance with treatment plan importance discussed. -Discussed the risks/benefits of this medication -Discussed medication side effects. -Contact office if symptoms worsen. -Discussed that it can take up to 6-8 weeks to see full therapeutic effects of psychotropic medications. -Crisis prevention hotline 988. Plan Of Treatment Next Appt Details Provider Name:Terri Aguilar, 05/15/2025 10:00:00 AM, [address], [facility] [address], [place], [address], Provider Name:Terri Aguilar, 06/05/2025 09:00:00 AM, [address], [facility] [address], [place], [address], Provider Name:Terri Aguilar, 06/12/2025 10:00:00 AM, [address], [facility] [address], [place], [address], Insurance Providers Payer Name Payer Address Payer Phone Subscriber Number Group Number Insured Name Patient Relationship to Insured Coverage Start Date Coverage End Date [facility] [address] [place] [address] [id number] DUSTY TILLEY Spouse - patient is the spouse of the insured Medications Administered Medication Instructions Date of Administration Dosage Notes Spravato (56 MG Dose) 03/17/2025 56 mg Spravato (84 MG Dose) 03/19/2025 84 mg Spravato (84 MG Dose) 03/23/2025 84 mg Spravato (84 MG Dose) 03/26/2025 84 mg Medical (General) History Medical History History ICD Code Problems: Generalized anxiety disorder History of bariatric surgical procedure Severe recurrent major depression withou t psychotic features , Surgical History Surgery Date(Month/Year) Other 12/15/2020
--- OUTSIDE RECORDS SUMMARY | 2025-05-12 00:43 | XMS_ITS | Clinical Summary ---
Author Organization [facility] Address [address] [place] [address] Care Team Providers Care Wedding Planner Name Role Phone Pj Kumar MD Primary Care Provider [phone] Source Comments [facility],non-owned Affiliates and Associated Physician Practices is amultiple site organization consisting of ambulatory clinics and hospital sitesin [place], [place], [place] and [place]. This disclosure is being madepursuant to the Care Everywhere program and may not contain all information available regarding this patient. Last updated 18.[facility] Allergies No known active allergies Medications * Be aware that medications may not be up to date on this document. Alwaysverify current medications with the patient. testosterone 7.5 mg/0.1ml 7.5MG/0.1ML injection Inject into muscle every 7 days 9 mg Active ARIPiprazole (Abilify) 2 MG tablet Take 1 (one) tablet by mouth once daily Active Active Problems Problem Noted Date Diagnosed Date S/P gastric bypass 12/15/2020 Social History Tobacco Use Types Packs/Day Years Used Date Smoking Tobacco: Never Smokeless Tobacco: Never Tobacco Cessation:Counseling Given: Not Answered Alcohol Use Standard Drinks/Week Comments Yes 0 (1 standard drink = 0.6 oz pur e alcohol) SOCIAL AUDIT-C Answer Date Recorded Q1: How often do you have a drink containing alc ohol? Never 08/23/2020 Average Number of Drinks Not on file 020 Frequency of Binge Drinking Not on file 07/28 Sex and Gender Information Value Date Recorded Sex Assigned at Not on file Legal Sex Male 10:54 AM DOUGH SHEETER Gender Identity Not on file Sexual Orientation Not on file Last Filed Vital Signs Vital Sign Reading Time Taken Comments Blood Pressure 131/76 09/18/2022 1:38 PM DOUGH SHEETER Pulse 68 09/18/2022 1:38 PM DOUGH SHEETER Temperature 36.2 C (97.1 F) 09/18/2022 1:38 PM DOUGH SHEETER Respiratory Rate 15 01/31/2021 8:40 AM CDT Oxygen Saturation 97% 09/18/2022 1:38 PM DOUGH SHEETER Inhaled Oxygen Concentration - - Weight 95.9 kg (211 lb 6.4 oz) 09/18/2022 1:38 P M DOUGH SHEETER Height 175.3 cm (5' 9) 09/18/2022 1:38 PM DOUGH SHEETER Body Mass Index 31.22 09/18/2022 1:38 PM DOUGH SHEETER Plan of Treatment Health Maintenance Due Date Last Done Comments COLOGUARD (AGES 45-75) - COLON CA SCREENING 1979 COLON MONITORING 1979 COLONOSCOPY - COLON CA SCREENING 1979 CT COLONOGRAPHY - COLON CA SCREENING 1979 Colorectal Cancer Screening 1979 FIT - COLON CA SCREENING 1979 FLEX SIG - COLON CA SCREENING 1979 LIPID TESTING 1979 HIV SCREENING 1994 HEPATITIS C SCREENING 10/16/1997 DTAP/TDAP/TD VACCINES (1 - Tdap) 1998 HEPATITIS B VACCINE (1 of 3 - 19+ 3-dose series) 1998 HPV VACCINE (1 - 3-dose SCDM series) 2006 DEPRESSION SCREENING 08/27/2024 COVID-19 VACCINE (2024- season) 2025 07/18/2021, 11/29/2020, 11/01/2020 INFLUENZA VACCINE (#1) 2025 SCREENING FOR DIABETES 09/26/2025 3, 06/24/2021, 12/16/2020, Additional history exists ZOSTER VACCINE (1 of 2) 2029 HIB VACCINE Aged Out No longer eligi ble based on patient's age to complete this topic MENINGOCOCCAL (Group B) VACCINE SHARED DECISION-MAKING Aged Out No longer eligible based on patient's age to complete this topic MENINGOCOCCAL GROUPS A/C/Y/W VACCINE Aged Out No longer eligible based on patient's age to complete this topic PNEUMOCOCCAL VACCINE Aged Out No long er eligible based on patient's age to complete this topic Procedures Procedure Name Priority Date/Time Associated Diagnosis Comments COMPREHENSIVE METABOLIC PANEL Routine 09/26/2022 7:34 AM DOUGH SHEETER Morbid obesity Bariatric surgery status Vitamin deficiency Vitamin D deficiency Postsurgical malabsorption from Last 3 Months or Most Recently Relevant to Health Maintenance Results * (ABNORMAL) COMPREHENSIVE METABOLIC PANEL (09/26/2022 7:34 AM DOUGH SHEETER) Glucose 97 65 - 99 mg/dL [facility] Comment: Fasting reference interval BUN 17 7 - 25 mg/dL [facility] Creatinine 0.74 0.60 - 1.29 mg/dL [facility] eGFR by Cystatin C 116 > OR = 60 mL/min/1. 73m2 [facility] Comment: The eGFR is based on the CKD-EPI 2020 equation. To calculate the new eGFR from a previous Creatinine or Cystatin C result, go to https://www.kidney.org/professionals/ kdoqi/gfr%5Fcalculator BUN/Creatinine Ratio NOT APPLICABLE 6 - 22 (calc) [facility] Sodium 140 135 - 146 mmol/L [facility] Potassium 3.9 3.5 - 5.3 mmol/L [facility] Chloride 105 98 - 110 mmol/L [facility] CO2 34(H) 20 - 32 mmol/L [facility] Calcium 9.4 8.6 - 10.3 mg/dL [facility] Protein Total 6.6 6.1 - 8.1 g/dL [facility] Albumin 4.5 3.6 - 5.1 g/dL [facility] Globulin Total 2.1 1.9 - 3.7 g/dL (calc) [facility] Albumin/Globuli n Ratio 2.1 1.0 - 2.5 (calc) [facility] Bilirubin Total 1.1 0.2 - 1.2 mg/dL [facility] Alkaline Phosphatase 69 36 - 130 U/L [facility] AST 20 10 - 40 U/L [facility] ALT 27 9 - 46 U/L [facility] Comment: Test Performed at: [facility] [id number] [id number] ANGE BAEZ MD Blood BLOOD SPECIMEN / Unknown 09/26/2022 7:34 AM DOUGH SHEETER 09/26/2022 7:36 AM DOUGH SHEETER Josi Gabriel JuanTray [facility] - CHEMISTRY ARIEL LEON Final Result [facility] [id number] [place] [address] from Last 3 Months or Most Recently Relevant to Health Maintenance Insurance ANTHEM ANTHEM Advance Directives * Full Code (Latest Code Status on File) Date Activated Date Inactivated Comments 12/15/2020 2:57 PM 12/16/2020 5:24 PM Care Teams Wedding Planner Relationship Specialty Start Date End Date Pj Kumar MD [address] [place] [address] PCP - General Internal Medicine 05/20/20
--- OUTSIDE RECORDS SUMMARY | 2025-05-12 00:43 | XMS_ITS | Clinical Summary ---
Author Organization [facility] Address [facility] [place] [address] Care Team Providers Care Manager Dialysis Name Role Phone None, Provider MD Primary Care Provider Unavaila ble Social History Tobacco Use Types Packs/Day Years Used Date Smoking Tobacco: Never Assessed Sex and Gender Information Value Date Recorded Sex Assigned at Not on file Legal Sex Male 8:22 PM CDT Gender Identity Not on file Sexual Orientation Not on file Plan of Treatment Health Maintenance Due Date Last Done Comments Colorectal Cancer Screening Colonoscopy (10 Years) 1979 Annual Physical 1982 Hepatitis C 1997 DTaP, Tdap and Td Vaccines ( 1 - Tdap) 1998 Hepatitis B Vaccines (1 of 3 - 19+ 3-dose series) 1998 HPV Vaccines (1 - 3-dose SCD M series) 2006 COVID-19 Vaccine ( - 2023-2 5 season) 2025 Meningococcal B Vaccine Aged Out No l onger eligible based on patient's age to complete this topic Meningococcal Vaccine Aged Out No lucille terry eligible based on patient's age to complete this topic Pneumococcal Vaccine: Pediat rics (0 to 5 Years) and At-Risk Patients (6 to 49 Years) Aged Out No longer eligible b ased on patient's age to complete this topic RSV Immunizations Under 20 Months Aged Out No longer eligible based on patient's age to complete this topic Insurance [facility] Care Teams Manager Dialysis Relationship Specialty Start Date End Date None, Provider, PCP - General 09/19/21
[2025-05-12 07:45] VITALS: BP 123/68; PULSE 49; RESP 18; TEMP 36.7; O2SAT 100; BMI 26.0
[2025-05-12] MEDS: LACTATED RINGERS 1,000 ML 150 ML IV CONT (07:54)
--- NOTE | 2025-05-12 08:09 | WPDANESEPPF ---
Anes - Initial Pre Proc Eval Procedure: Operation Date: 05/12/25 09:00 Proposed Procedures p Screening Colonoscopy - Jose Bingham DO Date/Time: 05/12/25 08:09 Surgeon: Jose Bingham DO Pre Op Diagnosis: Screening for malignant neoplasm of colon Patient Data Age: 44 Gender: M Height: 1.75 m Weight: 80 kg Last Vital Signs Temp 98.0 F 05/12/25 07:45 Pulse 49 L 05/12/25 07:45 Resp 18 05/12/25 07:45 BP 123/68 05/12/25 07:45 Pulse Ox 100 05/12/25 07:45 O2 Del Method Room Air 05/12/25 07:45 Allergies Allergy/AdvReac Type Severity Reaction Status Date / Time No Known Allergies Allergy Mild Verified 05/12/25 07:44 Home Medications ?Medication ?Instructions ?Recorded ?Confirmed ?Type vilazodone 40 mg tablet 40 mg PO DAILY 08/16/23 05/12/25 History syringe with cannula,disposabl 17 #100 ea 09/13/23 01/05/25 Rx x 3 mL (BD Blunt Plastic Cannula) safety needles 21 gauge x 1 (BD #100 ea 10/11/23 01/05/25 Rx Eclipse) acetaminophen 500 mg tablet 1,000 mg (2 x 500 mg) PO Q6H PRN 04/07/24 05/12/25 Rx (Tylenol Extra Strength) pain #30 tabs syringe with needle, safety 1 mL #100 ea 07/07/24 01/05/25 Rx 23 gauge x 1 (Aqinject Safety Syringe) bupropion HCl 100 mg tablet 100 mg PO TID #90 tabs 01/05/25 05/12/25 Rx tirzepatide (weight loss) 10 10 mg (0.5 mL) subcut WEEKLY #6 mL 03/16/25 05/12/25 Rx mg/0.5 mL subcutaneous pen injector (Zepbound) Patient hx anesthesia problems: none Family hx anesthesia problems: none Results Review: All pre-operative results and documents have been reviewed as part of the pre-operative evaluation. [facility] Past Medical History Medical History Low testosterone Fatigue Prediabetes Anxiety Depression Diabetes High cholesterol Sleep apnea Wears glasses Weight gain Kidney stones Surgical History Surgical History H/O bariatric surgery Family History Family History Father Brain cancer Grandparent Malignant neoplasm of prostate Social History Social History Social History: 12/29/24 very confident with medical forms Smoking status: Never smoker Alcohol intake: current Alcohol use details: Occasionally Substance use: never Do You Feel Safe in your Home?: Yes Lack of Transportation: No Lack of Food: Never True Current Housing: I Have Housing Concerned About Future Housing: No Difficulty Paying Gas/Electric Bills: No Difficulty Paying for Meds: No Currently Unemployed: No Education: Associate Degree Difficulty w/ Childcare or Family Care: No Living arrangements: with family Occupation/Education: occupation Additional occupation/education comments: self employed Gender identity (if verbalized by the patient): Male Spiritual care concerns: No Agree to blood products: Yes Anes - Eval Final PreProcedure Day of Procedure 05/12/25 08:09 Patient weight: normal Lungs: normal air movement Airway: Mallampati scale class II Neurological: alert and oriented Last oral intake: >/= 8 hours ASA classification: II Emergent: no Anesthetic plan: proceed Anesthesia type and monitoring: general GIVS and standard monitoring Results Review: All pre-operative results and documents have been reviewed as part of the pre-operative evaluation. PreDM, off GLP1 for 2 weeks. Anxiety/depression by hx. Informed Consent: The patient's anesthetic plan and its attendant risks and benefits were discussed with the patient/family/POA. Questions were solicited and answers provided to the satisfaction of the patient/family/POA.
--- NOTE | 2025-05-12 09:10 | PM.IMHP ---
H&P: HPI History of Present Illness Date/Time: 05/12/25 09:10 Chief Complaint: screening for colorectal cancer Narrative: this is a 44-year-old man who presents for colonoscopy. He last had a colonoscopy 5 years ago when he was having a proctology procedure done. He denies any current change in bowel habits, hematochezia, or melena. He denies family history colon cancer. Review of Systems Review of Systems: All systems reviewed & are unremarkable except as noted in HPI and below Constitutional: Constitutional: Denies chills, Denies fever(s), Denies headache(s) and Denies weight loss Eyes: Eyes: Denies change in vision ENT: Denies dizziness, Denies headache(s), Denies neck mass and Denies throat swelling Cardiovascular: Cardiovascular: Denies chest pain, Denies lightheadedness and Denies dyspnea Respiratory: Respiratory: Denies cough, Denies dyspnea and Denies wheezing Gastrointestinal: Gastrointestinal: Denies abdominal pain, Denies change in bowel habits, Denies nausea and Denies vomiting Genitourinary: Genitourinary: Denies hematuria and Denies dysuria Musculoskeletal: Musculoskeletal: Reports as per HPI Integumentary/Breasts: Skin/Breast: Reports as per HPI Neurologic: Denies dizziness and Denies headache(s) Allergic/Immunologic: Allergic/Immunologic: Denies throat swelling and Denies wheezing PMFSH Past Medical History Medical History Low testosterone Fatigue Prediabetes Anxiety Depression Diabetes High cholesterol Sleep apnea Wears glasses Weight gain Kidney stones Surgical History Surgical History H/O bariatric surgery Family History Family History Father Brain cancer Grandparent Malignant neoplasm of prostate Social History Social History Social History: 12/29/24 very confident with medical forms Smoking status: Never smoker Alcohol intake: current Alcohol use details: Occasionally Substance use: never Do You Feel Safe in your Home?: Yes Lack of Transportation: No Lack of Food: Never True Current Housing: I Have Housing Concerned About Future Housing: No Difficulty Paying Gas/Electric Bills: No Difficulty Paying for Meds: No Currently Unemployed: No Education: Associate Degree Difficulty w/ Childcare or Family Care: No Living arrangements: with family Occupation/Education: occupation Additional occupation/education comments: self employed Gender identity (if verbalized by the patient): Male Spiritual care concerns: No Agree to blood products: Yes Meds Home Medications and Allergies Home Medications ?Medication ?Instructions ?Recorded ?Confirmed ?Type vilazodone 40 mg tablet 40 mg PO DAILY 08/16/23 05/12/25 History syringe with cannula,disposabl 17 #100 ea 09/13/23 01/05/25 Rx x 3 mL (BD Blunt Plastic Cannula) safety needles 21 gauge x 1 (BD #100 ea 10/11/23 01/05/25 Rx Eclipse) acetaminophen 500 mg tablet 1,000 mg (2 x 500 mg) PO Q6H PRN 04/07/24 05/12/25 Rx (Tylenol Extra Strength) pain #30 tabs syringe with needle, safety 1 mL #100 ea 07/07/24 01/05/25 Rx 23 gauge x 1 (Aqinject Safety Syringe) bupropion HCl 100 mg tablet 100 mg PO TID #90 tabs 01/05/25 05/12/25 Rx tirzepatide (weight loss) 10 10 mg (0.5 mL) subcut WEEKLY #6 mL 03/16/25 05/12/25 Rx mg/0.5 mL subcutaneous pen injector (Zepbound) Allergies Allergy/AdvReac Type Severity Reaction Status Date / Time No Known Allergies Allergy Mild Verified 05/12/25 07:44 Vital Signs Vital Signs - 24 hr 05/12/25 07:45 Temperature 98.0 F Pulse Rate 49 L Respiratory Rate 18 Blood Pressure 123/68 Pulse Oximetry 100 Oxygen Delivery Room Air Exam Const: General: no acute distress and alert Orientation/consciousness: patient oriented x3 HENMT: Head: normocephalic and atraumatic Ears: hearing grossly normal bilaterally Face/Nose/Sinus: Normal nares present Mouth: Yes Normal oral and palatal mucosa present Eyes: Periorbital: periorbital findings normal Sclera: sclerae normal EOM: EOMs intact bilaterally Neck: Neck: normal visual inspection, no lymphadenopathy and trachea midline Chest: Chest palpation & inspection: normal inspection of the chest Resp: Effort & Inspection: normal respiratory effort Auscultation: clear to auscultation bilaterally Cardio: Jugular venous distension: no JVD Rate: regular rate Rhythm: regular rhythm Heart sounds: S1 normal heart sound present and S2 normal heart sound present Peripheral pulses: Peripheral pulses 2+ throughout GI: Inspection: normal to inspection GI Palp: Yes Soft to palpation, No Tenderness to palpation present (GI), No Guarding due to palpation present (GI) and No Rebound tenderness present Percussion: Yes normal to percussion Auscultation: normal bowel sounds : General: Yes no CVA tenderness Back/Spine/Pelvis: Back: no CVA tenderness Neuro: General: patient oriented x3, no focal motor deficits and CN's II-XI intact bilaterally Cognition (Neuro): normal cognition Speech: normal speech Motor exam (neuro): 5/5 motor strength present throughout Extrem: General: capillary refill normal and no clubbing, cyanosis or edema Assessment and Plan Assessment and plan (1) Screening for colorectal cancer: Code(s): Z12.11 - Encounter for screening for malignant neoplasm of colon; Z12.12 - Encounter for screening for malignant neoplasm of rectum Status: Acute Assessment and Plan: I have recommended colonoscopy. I have discussed the procedure, risks, benefits, and alternatives. Questions were answered. Patient is agreeable to proceed.
[2025-05-12 09:44] VITALS: BP 100/63; PULSE 55; RESP 22; O2SAT 100
[2025-05-12 09:54] VITALS: BP 103/60; PULSE 53; RESP 25; O2SAT 100
[2025-05-12 10:04] VITALS: BP 120/68; PULSE 58; RESP 20; O2SAT 100
== END 2025-05-12 10:14 | disposition home or self-care (01) ==
PROVIDERS: PCP Nurse Practitioner Family; Visit Provider Surgery
PROC: 0DJD8ZZ Inspection of Lower Intestinal Tract, Via Natural or Artificial Opening Endoscopic (ICD-10-PCS; CPT 45378; principal; 2025-05-12 09:00)
DX: Z12.11 Encounter for screening for malignant neoplasm of colon (principal); R73.03 Prediabetes; E29.1 Testicular hypofunction; G47.30 Sleep apnea, unspecified; R53.83 Other fatigue; F41.9 Anxiety disorder, unspecified; F32.A Depression, unspecified; Z79.85 Long-term (current) use of injectable non-insulin antidiabetic drugs; Z98.84 Bariatric surgery status; Z87.442 Personal history of urinary calculi; Z80.8 Family history of malignant neoplasm of other organs or systems; Z80.42 Family history of malignant neoplasm of prostate
CPT/HCPCS: 45378; J2003; J2704; J7120